=== PATIENT | female | born 1990 | race African-American/Black ===

== ENCOUNTER 2017-03-05 09:22 | Emergency (ER) | payer MEDICARE, OTHER ==
[~2017-03-05] VITALS: Ht 152.4 cm; Wt 76.0 kg
[~2017-03-05 09:22] MED LIST: CEPH500C2; IBUP-2030; PRE NATAL VIT.
[2017-03-05 12:30] VITALS: BP 128/82
[2017-03-05] MEDS ORDERED: LIDOCAINE HCL 1%/EPI 1:200,000 30 ML VIAL MC ONE (12:30)
[2017-03-05] MEDS ORDERED: BACITRACIN ZINC OINT UDPKT TOP ONE (12:30)
== END 2017-03-05 13:24 | disposition home or self-care (01) ==
LOC: ER 12:22
DX: L02.411 Cutaneous abscess of right axilla (principal)
CPT/HCPCS: 10060; 99283

== ENCOUNTER 2017-03-07 | Emergency (ER) | payer MEDICARE, OTHER ==
[~2017-03-07] VITALS: Ht 157.5 cm; Wt 76.0 kg
[2017-03-07 00:14] VITALS: BP 134/90
== END 2017-03-07 04:15 | disposition home or self-care (01) ==
LOC: ER
DX: L02.413 Cutaneous abscess of right upper limb (principal); J45.909 Unspecified asthma, uncomplicated; Z98.890 Other specified postprocedural states
CPT/HCPCS: 99283

== ENCOUNTER 2017-08-30 17:12 | Emergency (ER) | payer MEDICARE, OTHER ==
[~2017-08-30] VITALS: Ht 167.6 cm; Wt 63.0 kg
[2017-08-30 19:01] LABS: CLARITY URINE TURBID (CLEAR); COLOR URINE YELLOW (YELLOW); KETONES URINE TRACE (NEGATIVE); LEUKOCYTE ESTERASE URINE 3+ (NEGATIVE); NITRITE URINE NEGATIVE (NEGATIVE); OCCULT BLOOD URINE 3+ (NEGATIVE); PH URINE >=9.0 (4.5-8.0); PROTEIN URINE 2+ (NEGATIVE); SPECIFIC GRAVITY URINE 1.025 (1.005-1.030)
[2017-08-30] MEDS ORDERED: NITROFURANTOIN 100MG M/M CAPSULE PO ONE (19:15)
[2017-08-30 19:34] VITALS: BP 126/81
== END 2017-08-30 19:38 | disposition home or self-care (01) ==
LOC: ER 17:54
DX: N39.0 Urinary tract infection, site not specified (principal)
CPT/HCPCS: 81003; 81025; 87077; 87086; 87186; 99284

== ENCOUNTER 2017-12-22 17:57 | Emergency (ER) | payer OTHER ==
[~2017-12-22] VITALS: Ht 157.5 cm; Wt 63.0 kg
[2017-12-22 18:37] VITALS: BP 141/90
== END 2017-12-22 19:59 | disposition left against medical advice (07) ==
LOC: ER 19:56
DX: L02.412 Cutaneous abscess of left axilla (principal)
CPT/HCPCS: 99281

== ENCOUNTER 2018-01-22 08:45 | Emergency (ER) | payer OTHER ==
[~2018-01-22] VITALS: Ht 167.6 cm; Wt 68.0 kg
[2018-01-22 10:36] LABS: BASOPHILS % 0.5 % (0.0-2.0); EOSINOPHILS % 1.4 % (0.0-5.0); HEMATOCRIT. 35.5 % (36.0-48.0); HEMOGLOBIN. 11.9 g/dL (12.0-16.0); LYMPHOCYTES % 34.7 % (20.0-50.0); MEAN CORPUSCULAR HEMOGLOBIN 30.6 pg (28.0-32.0); MEAN CORPUSCULAR VOLUME 91.4 fL (81.0-99.0); MEAN PLATELET VOLUME 8.7 fl (7.4-10.4); MONOCYTES % 6.6 % (2.0-8.0); NEUTROPHILS % 56.8 % (40.0-76.0); PLATELET 185 x1000/uL (130-400); RED BLOOD CELL COUNT 3.89 mill/uL (4.2-5.4); RED CELL DISTRIBUTION WIDTH 13.3 % (11.6-14.6)
[2018-01-22 10:38] LABS: CHLORIDE 111 mEq/L (98-107)
[2018-01-22 10:45] LABS: PROTHROMBIN TIME 10.9 sec (9.4-11.6)
[2018-01-22] MEDS ORDERED: LORAZEPAM 2MG/ML CPJ IV ONE (11:00)
[2018-01-22] MEDS ORDERED: ACETAMINOPHEN 650MG/20.3ML UDC PO ONE (11:00)
[2018-01-22 11:01] LABS: HCG SCREEN NEGATIVE
[2018-01-22] MEDS ORDERED: POTASSIUM CHLORIDE 20MEQ TABLET SR PO SCH (12:15)
[2018-01-22 13:51] VITALS: BP 119/62
== END 2018-01-22 13:54 | disposition home or self-care (01) ==
LOC: ER 08:45
DX: R55 Syncope and collapse (principal); F41.9 Anxiety disorder, unspecified; J45.909 Unspecified asthma, uncomplicated
CPT/HCPCS: 36415; 71045; 80053; 83880; 84484; 84703; 85025; 85610; 93005; 96374; 99285; J2060

== ENCOUNTER 2020-12-19 20:14 | Emergency (ER) | payer MEDICAID, OTHER ==
[~2020-12-19] VITALS: Ht 160 cm; Wt 61.0 kg
[2020-12-19 23:43] VITALS: BP 132/80
== END 2020-12-19 23:44 | disposition home or self-care (01) ==
LOC: ER 20:23
DX: M54.9 Dorsalgia, unspecified (principal); R60.9 Edema, unspecified; J45.909 Unspecified asthma, uncomplicated; V49.40XA Driver injured in collision with unspecified motor vehicles in traffic accident, initial encounter; Y93.89 Activity, other specified; Y92.410 Unspecified street and highway as the place of occurrence of the external cause; Z88.0 Allergy status to penicillin
CPT/HCPCS: 81025; 99282

== ENCOUNTER 2020-12-23 08:07 | Emergency (ER) | payer MEDICAID ==
[~2020-12-23] VITALS: Ht 160 cm; Wt 61.0 kg
[2020-12-23] MEDS ORDERED: ACETAMINOPHEN 325MG TABLET PO ONE (08:45)
[2020-12-23 09:12] LABS: CLARITY URINE CLOUDY (CLEAR); COLOR URINE YELLOW (YELLOW); KETONES URINE NEGATIVE (NEGATIVE); LEUKOCYTE ESTERASE URINE NEGATIVE (NEGATIVE); NITRITE URINE NEGATIVE (NEGATIVE); OCCULT BLOOD URINE NEGATIVE (NEGATIVE); PH URINE 8.5 (4.5-8.0); PROTEIN URINE NEGATIVE (NEGATIVE); SPECIFIC GRAVITY URINE 1.023 (1.005-1.030)
[2020-12-23 09:35] LABS: BASOPHILS % 0.3 % (0.0-2.0); EOSINOPHILS % 1.5 % (0.0-5.0); LYMPHOCYTES % 22.6 % (20.0-50.0); MEAN CORPUSCULAR HEMOGLOBIN 33.4 pg (28.0-32.0); MEAN CORPUSCULAR VOLUME 100.5 fL (81.0-99.0); MEAN PLATELET VOLUME 8.7 fl (7.4-10.4); MONOCYTES % 8.5 % (2.0-8.0); NEUTROPHILS % 67.1 % (40.0-76.0); PLATELET 149 x1000/uL (130-400); RED BLOOD CELL COUNT 3.89 mill/uL (4.2-5.4); RED CELL DISTRIBUTION WIDTH 12.3 % (11.6-14.6)
[2020-12-23 09:42] LABS: CHLORIDE 110 mEq/L (98-107)
[2020-12-23] MEDS ORDERED: LIDOCAINE 5% PATCH TOP SCH (10:00)
[2020-12-23] MEDS ORDERED: IBUPROFEN 600MG TABLET PO ONE (10:00)
[2020-12-23 10:11] VITALS: BP 129/78
== END 2020-12-23 10:23 | disposition home or self-care (01) ==
LOC: ER 08:07
DX: S20.212A Contusion of left front wall of thorax, initial encounter (principal); J45.909 Unspecified asthma, uncomplicated; X58.XXXA Exposure to other specified factors, initial encounter; Y93.89 Activity, other specified; Y92.89 Other specified places as the place of occurrence of the external cause; Y99.8 Other external cause status; Z88.0 Allergy status to penicillin
CPT/HCPCS: 36415; 71045; 80053; 81003; 81025; 84484; 85025; 93005; 99285

== ENCOUNTER 2021-09-16 07:53 | Emergency (ER) | payer MEDICAID, OTHER ==
[~2021-09-16] VITALS: Ht 160 cm; Wt 62.0 kg
[2021-09-16] MEDS ORDERED: MUPI1OIN4 TP (09:18)
[2021-09-16 09:24] VITALS: BP 125/63
== END 2021-09-16 09:24 | disposition home or self-care (01) ==
LOC: ER 07:53
DX: L73.8 Other specified follicular disorders (principal); J45.909 Unspecified asthma, uncomplicated; Z88.0 Allergy status to penicillin
CPT/HCPCS: 99283

== ENCOUNTER 2021-10-24 12:05 | Emergency (ER) | payer MEDICAID, OTHER ==
[~2021-10-24] VITALS: Ht 160 cm; Wt 61.0 kg
[~2021-10-24 12:05] MED LIST changes: +MUPI1OIN4 TP
[2021-10-24 12:48] VITALS: BP 136/56
[2021-10-24] MEDS ORDERED: IBUPROFEN 600MG TABLET PO ONE (13:00)
[2021-10-24 14:55] LABS: CLARITY URINE CLEAR (CLEAR); COLOR URINE YELLOW (YELLOW); KETONES URINE NEGATIVE (NEGATIVE); LEUKOCYTE ESTERASE URINE NEGATIVE (NEGATIVE); NITRITE URINE NEGATIVE (NEGATIVE); OCCULT BLOOD URINE NEGATIVE (NEGATIVE); PROTEIN URINE NEGATIVE (NEGATIVE); SPECIFIC GRAVITY URINE 1.024 (1.005-1.030)
[2021-10-24] MEDS ORDERED: IBUPROFEN 600MG TABLET PO NR (15:00)
[2021-10-24] MEDS ORDERED: LIDO1ADH5 TP (15:46)
[2021-10-24] MEDS ORDERED: IBUP-2028 MT (15:46)
[2021-10-24] MEDS ORDERED: HYDR99LO MT ×2 (15:46)
[2021-10-24] MEDS ORDERED: METR-167 MT (16:48)
== END 2021-10-24 16:01 | disposition home or self-care (01) ==
LOC: ER 12:05
DX: N76.0 Acute vaginitis (principal); M54.50 Low back pain, unspecified; J45.909 Unspecified asthma, uncomplicated; Z88.0 Allergy status to penicillin; Z98.890 Other specified postprocedural states
CPT/HCPCS: 81003; 81025; 87210; 99283

== ENCOUNTER 2023-02-16 12:23 | Emergency (ER) | payer OTHER ==
[~2023-02-16] VITALS: Ht 157.5 cm; Wt 59.1 kg
[~2023-02-16 12:23] MED LIST changes: +IBUP-2028 MT; +LIDO1ADH5 TP; +METR-167 MT
[2023-02-16 12:44] VITALS: O2SAT 100
[2023-02-16] MEDS ORDERED: KETOROLAC 60MG/2ML VIAL IM ONE (14:45)
[2023-02-16] MEDS ORDERED: NAPR-1176 MT (18:14)
[2023-02-16] MEDS ORDERED: LIDO700A15 TP (18:14)
[2023-02-16 18:40] VITALS: BP 131/87; PULSE 89; RESP 18; TEMP 98.6
== END 2023-02-16 18:42 | disposition home or self-care (01) ==
LOC: ER 12:23
DX: S39.012A Strain of muscle, fascia and tendon of lower back, initial encounter (principal); Z88.0 Allergy status to penicillin; V49.9XXA Car occupant (driver) (passenger) injured in unspecified traffic accident, initial encounter; Y93.89 Activity, other specified; Y92.89 Other specified places as the place of occurrence of the external cause; Y99.8 Other external cause status
CPT/HCPCS: 99285; 72131; 81025; 96372; J1885